=== PATIENT | female | born 1975 | race Caucasian/White ===

== ENCOUNTER → 2020-12-30 | Outpatient (CLI) | payer BC | LOC: M.RAD 12-24 10:00 | PROVIDERS: ATTEND Obstetrics & Gynecology | DX: Z12.31 Encounter for screening mammogram for malignant neoplasm of breast (principal); N64.89 Other specified disorders of breast ==

== ENCOUNTER → 2021-01-05 | Outpatient (CLI) | payer BC | LOC: M.ULTRA 08:41 | PROVIDERS: ATTEND Obstetrics & Gynecology | DX: N60.01 Solitary cyst of right breast (principal) ==